=== PATIENT | female | born 1970 | race Caucasian/White ===

== ENCOUNTER 2017-03-22 19:12 | Emergency (ER) | payer OTHER ==
[2017-03-22 19:20] VITALS: BP 110/69; PULSE 77; TEMP 98.2; BMI 29.2
--- NOTE | 2017-03-22 19:52 | PDOC ---
History of Present Illness - General Chief Complaint: Eye Problem Stated Complaint: EYE PAIN Time Seen by Provider: 03/22/17 19:39 History Source: Patient Exam Limitations: No Limitations - History of Present Illness Initial Comments: 03/22/17 19:59 Chief complaint: Redness to the eye An 46-year-old female with a history of lupus states that her eye, left is red today, no visual issues. She had similar to the right eye last week, used antibiotic drops which she has with her and she started to use them in the left eye today but they did not help. She states they helped in the right eye last week. Wear contacts, she does not have discharge from the eye or pain. GENERAL/CONSTITUTIONAL: No fever, weakness. dizziness HEAD, EYES, EARS, NOSE AND THROAT: No change in vision. No ear pain or discharge. No sore throat. + Eye redness CARDIOVASCULAR: No chest pain RESPIRATORY: No shortness of breath or cough GASTROINTESTINAL: No pain, nausea, vomiting, diarrhea or constipation GENITOURINARY: No dysuria MUSCULOSKELETAL: No neck or back pain SKIN: No rash NEUROLOGIC: No headache, vertigo, loss of consciousness, or loss of sensation. GENERAL: The patient is awake, alert, and fully oriented, in no acute distress. HEAD: Normal with no signs of trauma. EYES: Pupils equal, round and reactive to light, sclera anicteric, sclera clear , left slightly reddened, EOMs intact, fundus clear ENT: pharynx: no erythema, no exudate, uvula midline NECK: supple CHEST: clear, nontender, rr ABD: soft, nontender EXTREMITIES: Normal range of motion, no edema. NEUROLOGICAL: Normal speech, normal gait. SKIN: Warm, Dry Past History - Past Medical History Allergies/Adverse Reactions: Allergies Allergy/AdvReac Type Severity Reaction Status Date / Time Penicillins Allergy Verified 03/22/17 19:20 Home Medications: Ambulatory Orders Moxifloxacin HCl [Vigamox 0.5% Eye Drops -] 1 drop OP TID #1 bot 03/22/17 Thyroid Disease: Yes Other medical history: lupus - Suicide/Smoking/Psychosocial Hx Smoking History: Never smoked Have you smoked in the past 12 months: No Information on smoking cessation initiated: No Hx Alcohol Use: No Drug/Substance Use Hx: No Substance Use Type: None *Physical Exam - Vital Signs Last Vital Signs Temp Pulse Resp BP Pulse Ox 98.2 F 77 18 110/69 99 03/22/17 19:14 03/22/17 19:14 03/22/17 19:14 03/22/17 19:14 03/22/17 19:14 Medical Decision Making - Medical Decision Making 03/22/17 20:02 Patient who had conjunctivitis to the right eyelid last week, treated with polymyxin B Nikita's, not working on left eye which started getting red today, long talk with patient regarding the need to see an acting section chief tomorrow to clarify the issue with her eyes, not classic presentation for conjunctivitis, no visual issues, no concerning signs, globes soft equally in history of red eye last week and antibiotic drop not working, will give a fluoroquinolone drop and she will see her acting section chief tomorrow *DC/Admit/Observation/Transfer Diagnosis at time of Disposition: Redness of eye, left - Discharge Dispostion Disposition: HOME Condition at time of disposition: Stable - Prescriptions Prescriptions: Moxifloxacin HCl [Vigamox 0.5% Eye Drops -] 1 drop OP TID #1 bot - Referrals Referrals: Monalisa Corcoran [Primary Care Provider] - - Patient Instructions Additional Instructions: Use the drops to the left eye 3 times a day for 7 days as discussed this may be the same that you had in the right eye last week but even your history it is very important to get a full eye exam tomorrow by your acting section chief - Post Discharge Activity Forms/Work/School Notes: Back to Work
== END 2017-03-22 19:53 | disposition home or self-care (01) ==
LOC: JERFT 19:12
DX: L53.8 Other specified erythematous conditions (principal); L93.0 Discoid lupus erythematosus
CPT/HCPCS: 99281-25

== ENCOUNTER 2018-01-18 12:41 | Observation (INO) | payer OTHER ==
--- NOTE | 2018-01-18 13:10 | PDOC ---
History of Present Illness - General Chief Complaint: Lightheaded Stated Complaint: DIZZINESS Time Seen by Provider: 01/18/18 13:10 History Source: Patient Exam Limitations: No Limitations - History of Present Illness Initial Comments: 01/18/18 18:45 Ms. Khalil is a 47 yo F with a hx of a thyroidectomy (2015), SLE (diagnosed 2 years ago), HLD, and pre diabetes who presents to the emergency department with weakness. She states she has been having weakness since yesterday. Denies the following: fevers, headaches, chest pain, SOB, abdominal pain, N/V, dizziness, diarrhea, and recent sick contacts. In addition, denies recent travel. Endorses lightheadedness. Pmhx SLE, hypothyroidism, hld, and pre-diabetes Shx: thyroidectomy 2016 07/14 cancerous lesion. BX of thyroid showed cancer. Meds: vit D3, synthroid, and metformin Allergies: penicillin Social: denies smoking, drug use. social drinker. 01/18/18 18:50 01/18/18 18:55 Past History - Past Medical History Allergies/Adverse Reactions: Allergies Allergy/AdvReac Type Severity Reaction Status Date / Time Penicillins Allergy Verified 01/18/18 13:09 Home Medications: Ambulatory Orders Levothyroxine [Synthroid -] 150 mcg PO DAILY 01/18/18 Loratadine 10 mg PO DAILY 01/18/18 Metformin HCl [Metformin HCl ER] 500 mg PO DAILY 01/18/18 Thyroid Disease: Yes - Suicide/Smoking/Psychosocial Hx Smoking History: Never smoked Have you smoked in the past 12 months: No Hx Alcohol Use: No Drug/Substance Use Hx: No Substance Use Type: None Review of Systems - Review of Systems Constitutional: No: Chills, Diaphoresis, Fever HEENTM: No: Recent change in vision, Nose Pain, Throat Pain, Mouth Pain Respiratory: No: Cough, Shortness of Breath Cardiac (ROS): Yes: Lightheadedness. No: Chest Pain ABD/GI: No: Constipated, Diarrhea, Nausea, Rectal Bleeding, Vomiting, Tarry Stools : No: Dysuria, Hematuria Musculoskeletal: No: Back Pain Integumentary: No: Rash Neurological: Yes: Weakness. No: Headache, Numbness, Ataxia, Dizziness Psychiatric: No: Change in Appetite Endocrine: No: Unexplained Weight Loss Hematologic/Lymphatic: No: Anemia *Physical Exam - Physical Exam General Appearance: Yes: Nourished, Appropriately Dressed HEENT: positive: EOMI, ANGELINA, Normal Voice. negative: Pharyngeal Erythema, Tonsillar Exudate, Tonsillar Erythema, Rhinorrhea, TM Bulging, TM Erythema Respiratory/Chest: positive: Lungs Clear, Normal Breath Sounds Cardiovascular: positive: Regular Rhythm, Regular Rate, S1, S2. negative: Systolic Murmur Gastrointestinal/Abdominal: positive: Normal Bowel Sounds. negative: Tender Musculoskeletal: negative: CVA Tenderness Extremity: positive: Normal Capillary Refill, Normal Inspection Integumentary: positive: Normal Color, Dry, Warm Neurologic: positive: galley hand II-XII NML intact, Fully Oriented, Alert, Normal Mood/ Affect, Normal Response, Motor Strength 10/14 ED Treatment Course - LABORATORY CBC & Chemistry Diagram: 01/18/18 14:00 01/18/18 14:00 Medical Decision Making - Medical Decision Making 01/18/18 18:55 Initial vitals" Initial Vital Signs Temp Pulse Resp BP Pulse Ox 97.1 F L 67 18 124/84 97 01/18/18 13:09 01/18/18 13:09 01/18/18 13:09 01/18/18 13:09 01/18/18 13:09 Work up: Laboratory Results - last 24 hr 01/18/18 01/18/18 01/18/18 14:00 14:00 14:00 WBC 2.5 L RBC 4.12 Hgb 11.7 Hct 34.7 MCV 84.2 MCH 28.4 MCHC 33.7 RDW 14.4 Plt Count 138 MPV 9.7 Absolute Neuts (auto) 1.3 Neutrophils % 50.3 Lymphocytes % 36.5 Monocytes % 8.7 Eosinophils % 4.0 Basophils % 0.5 Nucleated RBC % 0 Sodium 140 Potassium 4.2 Chloride 104 Carbon Dioxide 30 Anion Gap 6 L BUN 13 Creatinine 0.6 Creat Clearance w eGFR > 60 Random Glucose 85 Calcium 8.6 Total Bilirubin 0.6 AST 35 ALT 36 Alkaline Phosphatase 111 Creatine Kinase 192 Creatine Kinase Index 1.3 CK-MB (CK-2) 2.65 Troponin I < 0.02 Total Protein 9.0 H Albumin 3.5 TSH 45.30 H Urine Color Urine Appearance Urine pH Ur Specific [place] Urine Protein Urine Glucose (UA) Urine Ketones Urine Blood Urine Nitrite Urine Bilirubin Urine Urobilinogen Ur Leukocyte Esterase Urine HCG, Qual HIV 1&2 Antibody Screen HIV P24 Antigen 01/18/18 01/18/18 01/18/18 16:37 16:37 17:19 WBC RBC Hgb Hct MCV MCH MCHC RDW Plt Count MPV Absolute Neuts (auto) Neutrophils % Lymphocytes % Monocytes % Eosinophils % Basophils % Nucleated RBC % Sodium Potassium Chloride Carbon Dioxide Anion Gap BUN Creatinine Creat Clearance w eGFR Random Glucose Calcium Total Bilirubin AST ALT Alkaline Phosphatase Creatine Kinase Creatine Kinase Index CK-MB (CK-2) Troponin I Total Protein Albumin TSH Urine Color Straw Urine Appearance Clear Urine pH 6.0 Ur Specific [place] 1.005 Urine Protein Negative Urine Glucose (UA) Negative Urine Ketones Negative Urine Blood Negative Urine Nitrite Negative Urine Bilirubin Negative Urine Urobilinogen Negative Ur Leukocyte Esterase Negative Urine HCG, Qual Negative HIV 1&2 Antibody Screen Negative HIV P24 Antigen Negative TSH is elevated. Given her hx of cancerous thyroid s/p thyroidectomy, under utilized synthroid use and concerns of abnormal TSH levels. She states recently had her synthroid changed from 125 to 150 01/15/2018. She is bradycardic in the ED with increasing weakness. will stay for observation 01/18/18 18:58 01/19/18 07:05 *DC/Admit/Observation/Transfer Diagnosis at time of Disposition: Hypothyroidism Qualifiers: Hypothyroidism type: unspecified Qualified Code(s): E03.9 - Hypothyroidism, unspecified - Discharge Dispostion Decision to Admit order: Yes - Referrals - Patient Instructions - Post Discharge Activity
[2018-01-18] MEDS ORDERED: SODIUM CHLORIDE 1,000 ML IV STA (13:47)
[2018-01-18 14:14] LABS: BASO % 0.5 % (0-2.0); HEMATOCRIT 34.7 % (32.4-45.2); HEMOGLOBIN 11.7 GM/dL (10.7-15.3); LYMPH % 36.5 % (8-40); MCH 28.4 pg (25.7-33.7); MCHC 33.7 g/dl (32.0-36.0); MEAN CELL VOLUME 84.2 fl (80-96); MEAN PLT VOLUME 9.7 fl (7.5-11.1); MONO % 8.7 % (3.8-10.2); NEUT % 50.3 % (42.8-82.8); PLATELET COUNT 138 K/MM3 (134-434); RBC 4.12 M/mm3 (3.60-5.2); RDW 14.4 % (11.6-15.6); WHITE BLOOD COUNT 2.5 K/mm3 (4.0-10.0)
[2018-01-18 14:38] LABS: ALBUMIN 3.5 g/dl (3.4-5.0); ANION GAP 6 (8-16); BILIRUBIN,TOTAL 0.6 mg/dL (0.2-1.0); BLOOD UREA NITROGEN 13 mg/dL (7-18); CALCIUM 8.6 mg/dL (8.5-10.1); CHLORIDE 104 mmol/L (98-107); CO2 30 mmol/L (21-32); CREATININE 0.6 mg/dL (0.55-1.02); GLUCOSE,RANDOM 85 mg/dL (74-106); POTASSIUM 4.2 mmol/L (3.5-5.1); SGOT/AST 35 U/L (15-37); SGPT/ALT 36 U/L (12-78); SODIUM 140 mmol/L (136-145)
[2018-01-18 14:40] LABS: ALK PHOS 111 U/L (45-117)
--- NOTE | 2018-01-18 15:03 | PDOC ---
Attending Attestation - Resident Resident Name: Praveen Miramontes - ED Attending Attestation I have performed the following: I have examined & evaluated the patient, The case was reviewed & discussed with the resident, I agree w/resident's findings & plan, Exceptions are as noted - HPI HPI: 01/18/18 14:41 47 F with h/o thyroidectomy presenting with generalized weakness and fatigue. Pt states that it started last night but acutely worsened today. Pt denies pain. Denies F/C. Denies CP/SOB. Denies weakness/numbness on one side of her body. Denies slurred speech. No sick contacts. - Physicial Exam PE: 01/18/18 14:44 "GENERAL: Awake, alert, and fully oriented, in no acute distress. HEAD: No signs of trauma EYES: PERRLA, EOMI, sclera anicteric, conjunctiva clear ENT: Auricles normal inspection, hearing grossly normal, nares patent, oropharynx clear without exudates. Moist mucosa NECK: Nontender, no stepoffs, Normal ROM, supple, no lymphadenopathy, JVD, or masses LUNGS: Breath sounds equal, clear to auscultation bilaterally. No wheezes, and no crackles HEART: Regular rate and rhythm, normal S1 and S2, no murmurs, rubs or gallops ABDOMEN: Soft, nontender, normoactive bowel sounds. No guarding, no rebound. No masses EXTREMITIES: Normal range of motion, no edema. No clubbing or cyanosis. No cords, erythema, or tenderness NEUROLOGICAL: Cranial nerves II through XII intact. 5/5 strength and sensation in all extremities, Normal speech, normal gait, normal cerebellar function SKIN: Warm, Dry, normal turgor, no rashes or lesions noted." - Medical Decision Making 01/18/18 14:44 47 F with weakness and lightheadedness. Will evaluate for infectious process. Also consider cardiac etiology, though pt with unremarkable EKG. Will check TSH given h/o hypothyroidism. - Labs - CXR, UA - IVF - Reassess 01/18/18 16:49 Labs notable for WBC 2.5, ANC 1.3 Pt with mild neutropenia but no fevers, no clinical signs of infectious process. Will f/u UA and CXR. If any sign of infection, will admit for IV abx Pt otherwise well appearing. Pt signed out to oncoming attending at 5pm, pending labwork, UA, and CXR
[2018-01-18 16:55] LABS: URINE APPEARANCE CLEAR; URINE BILIRUBIN NEGATIVE (<2.0 mg/dL); URINE COLOR STRAW; URINE GLUCOSE (UA) NEGATIVE (NEGATIVE); URINE KETONE NEGATIVE (NEGATIVE); URINE LEUK ESTERASE NEGATIVE (NEGATIVE); URINE NITRITE NEGATIVE (NEGATIVE); URINE PROTEIN NEGATIVE (NEGATIVE); URINE UROBILINOGEN NEGATIVE mg/dL (0.2-1.0)
--- NOTE | 2018-01-18 17:23 | PDOC ---
*Physical Exam - Vital Signs Last Vital Signs Temp Pulse Resp BP Pulse Ox 97.5 F L 59 L 20 122/88 100 01/18/18 17:11 01/18/18 17:11 01/18/18 17:11 01/18/18 17:11 01/18/18 17:11 - Physical Exam Comments: 01/18/18 18:52 gen: awake, alert, feels tired heart: +s1s2 rachid lungs: cta b/l abd: sof, nt/nd +bs ext: no c/c/e neuro: no focal neuro deficits ED Treatment Course - LABORATORY CBC & Chemistry Diagram: 01/18/18 14:00 01/18/18 14:00 - ADDITIONAL ORDERS Additional order review: Laboratory Results 01/18/18 01/18/18 01/18/18 16:37 16:37 14:00 Sodium 140 Potassium 4.2 Chloride 104 Carbon Dioxide 30 Anion Gap 6 L BUN 13 Creatinine 0.6 Creat Clearance w eGFR > 60 Random Glucose 85 Calcium 8.6 Total Bilirubin 0.6 AST 35 ALT 36 Alkaline Phosphatase 111 Creatine Kinase 192 Creatine Kinase Index 1.3 CK-MB (CK-2) 2.65 Troponin I < 0.02 Total Protein 9.0 H Albumin 3.5 Urine Color Straw Urine Appearance Clear Urine pH 6.0 Ur Specific [place] 1.005 Urine Protein Negative Urine Glucose (UA) Negative Urine Ketones Negative Urine Blood Negative Urine Nitrite Negative Urine Bilirubin Negative Urine Urobilinogen Negative Ur Leukocyte Esterase Negative Urine HCG, Qual Negative 01/18/18 14:00 RBC 4.12 MCV 84.2 MCHC 33.7 RDW 14.4 MPV 9.7 Neutrophils % 50.3 Lymphocytes % 36.5 Monocytes % 8.7 Eosinophils % 4.0 Basophils % 0.5 - Medications Given in the ED: ED Medications Discontinued Medications Generic Name Dose Route Start Last Admin Trade Name Freq PRN Reason Stop Dose Admin Sodium Chloride 1,000 mls @ 1,000 mls/hr 01/18/18 13:47 01/18/18 14:07 Normal Saline - IV 01/18/18 14:46 1,000 mls/hr ASDIR STA Administration Medical Decision Making - Medical Decision Making 01/18/18 18:53 a/p: 47yo female with increasing lethargy and feeling tired -pt signed out from the prior attending pending labs, cxr, ua 01/18/18 18:53 tsh 45- pt states she is taking her levothyroxine states she is tired, lethargic, cold when everyone else is hot, hair loss no leg swelling [facility] is her family member caretaker pt is s/p thyroidectomy for thyroid cancer - doc at [facility] will send free t4 suspect thyroid as cause of lethargy call placed to [facility] Dr. Corcoran is PMD *DC/Admit/Observation/Transfer Diagnosis at time of Disposition: Hypothyroidism - Discharge Dispostion Condition at time of disposition: Fair Decision to Admit order: Yes - Referrals Referrals: Monalisa Corcoran [Primary Care Provider] - - Patient Instructions - Post Discharge Activity - Attestations Physician Attestion: 01/18/18 20:12 I, Dr. Jasmin Ocasio, DO, attest that this document has been prepared under my direction and personally reviewed by me in its entirety. I further attest, that it accurately reflects all work, treatment, procedures and medical decision -making performed by me.
--- NOTE | 2018-01-18 20:55 | HP ---
CHIEF COMPLAINT: weakness and lethargy PCP: HISTORY OF PRESENT ILLNESS: 47 yo female with PMH Thyroid cancer s/p total thyroidectomy, HLD, Pre-diabetes , SLE, presents to the ED with 1 day of worsening weakness and lethargy. She also endorses feeling cold. She states that a few weeks ago she ran out of her synthroid and did not take it until she received a new prescription this past weekend. At that time her dose was increased from 125 mcg PO Daily to 150 mcg PO Daily and she filled the prescription on Monday (3 days ago). She followed up last year for imaging and states she was told she has no residual signs of thyroid cancer, but that she will need to be on synthroid for life. As for her Lupus dx, she was diagnosed 2 years ago and described her only main symptoms as feeling tired and sleeping a lot, denies any skin pathology, though she does endorse some swelling in her fingers when she first wakes up that resolves shortly after starting her day. She denies fevers, nighsweats, headache, chest pain, SOB, nausea, vomiting, diarrhea, leg swelling. Of note, Pt endorses 15 pound weight loss over the last few months as she has been dieting and trying to eat a more healthy diet with her prediabetes. ER course was notable for: (1) WBC 2.5, TSH 45, T4 0.51 (2) 1L NS (3) CXR noted, no acute pathology Recent Travel: none PAST MEDICAL HISTORY: Thyroid Cancer s/p total thyroidectomy HLD Pre-diabetes SLE PAST SURGICAL HISTORY: none Social History: Smoking: none Alcohol: none Drugs: none Family History: Allergies Penicillins Allergy (Verified 01/18/18 13:09) HOME MEDICATIONS: Home Medications Medication Instructions Recorded Loratadine 10 mg PO DAILY 01/18/18 Metformin HCl [Metformin HCl ER] 500 mg PO DAILY 01/18/18 REVIEW OF SYSTEMS CONSTITUTIONAL: chills generalized weakness Absent: fever, , diaphoresis, , malaise, loss of appetite, weight change HEENT: Absent: rhinorrhea, nasal congestion, throat pain, throat swelling, difficulty swallowing, mouth swelling, ear pain, eye pain, visual changes CARDIOVASCULAR: Absent: chest pain, syncope, palpitations, irregular heart rate, lightheadedness , peripheral edema RESPIRATORY: Absent: cough, shortness of breath, dyspnea with exertion, orthopnea, wheezing, stridor, hemoptysis GASTROINTESTINAL: Absent: abdominal pain, abdominal distension, nausea, vomiting, diarrhea, constipation, melena, hematochezia GENITOURINARY: Absent: dysuria, frequency, urgency, hesitancy, hematuria, flank pain, genital pain MUSCULOSKELETAL: Absent: myalgia, arthralgia, joint swelling, back pain, neck pain SKIN: Absent: rash, itching, pallor HEMATOLOGIC/IMMUNOLOGIC: Absent: easy bleeding, easy bruising, lymphadenopathy, frequent infections ENDOCRINE:cold intolerance Absent: unexplained weight gain, unexplained weight loss, heat intolerance, NEUROLOGIC: Absent: headache, focal weakness or paresthesias, dizziness, unsteady gait, seizure, mental status changes, bladder or bowel incontinence PSYCHIATRIC: Absent: anxiety, depression, suicidal or homicidal ideation, hallucinations. PHYSICAL EXAMINATION Vital Signs - 24 hr 01/18/18 01/18/18 01/18/18 13:09 16:57 17:11 Temperature 97.1 F L 97.8 F 97.5 F L Pulse Rate 67 Pulse Rate [ 64 59 L Apical] Respiratory 18 18 20 Rate Blood Pressure 124/84 Blood Pressure 120/81 122/88 [Right Arm] O2 Sat by Pulse 97 98 100 Oximetry (%) 01/18/18 20:21 Temperature 98.1 F Pulse Rate Pulse Rate [ 70 Apical] Respiratory 70 H Rate Blood Pressure Blood Pressure 112/72 [Right Arm] O2 Sat by Pulse 96 Oximetry (%) GENERAL: A&O, no acute distress HEAD: Normocephalic, atraumatic, thinning of hair EYES: PERRL, EOMI, no scleral icterus, possibly cataracts forming b/l EARS, NOSE, THROAT: oropharynx clear without exudates. Moist mucous membranes. NECK: without lymphadenopathy, no thyroid or thyroid nodules felt on exam LUNGS: CTA b/l, no crackles or wheezes HEART: Regular rate and rhythm, normal S1 and S2 without murmur, rub or gallop. ABDOMEN: Soft nontender to palpation, normoactive bowel sounds MUSCULOSKELETAL: No bony deformities or tenderness. No CVA tenderness. UPPER EXTREMITIES: 2+ pulses, warm, well-perfused. No cyanosis. No clubbing. No peripheral edema. LOWER EXTREMITIES: 2+ pulses, warm, well-perfused. No calf tenderness. No peripheral edema. NEUROLOGICAL: Cranial nerves II-XII grossly intact. Normal speech. PSYCHIATRIC: Cooperative. Good eye contact. Appropriate mood and affect. SKIN: Warm, dry, normal turgor, no rashes or lesions noted Laboratory Results - last 24 hr 01/18/18 01/18/18 01/18/18 14:00 14:00 14:00 WBC 2.5 L RBC 4.12 Hgb 11.7 Hct 34.7 MCV 84.2 MCH 28.4 MCHC 33.7 RDW 14.4 Plt Count 138 MPV 9.7 Absolute Neuts (auto) 1.3 Neutrophils % 50.3 Lymphocytes % 36.5 Monocytes % 8.7 Eosinophils % 4.0 Basophils % 0.5 Nucleated RBC % 0 Sodium 140 Potassium 4.2 Chloride 104 Carbon Dioxide 30 Anion Gap 6 L BUN 13 Creatinine 0.6 Creat Clearance w eGFR > 60 Random Glucose 85 Calcium 8.6 Total Bilirubin 0.6 AST 35 ALT 36 Alkaline Phosphatase 111 Creatine Kinase 192 Creatine Kinase Index 1.3 CK-MB (CK-2) 2.65 Troponin I < 0.02 Total Protein 9.0 H Albumin 3.5 TSH 45.30 H Free T4 Urine Color Urine Appearance Urine pH Ur Specific [place] Urine Protein Urine Glucose (UA) Urine Ketones Urine Blood Urine Nitrite Urine Bilirubin Urine Urobilinogen Ur Leukocyte Esterase Urine HCG, Qual HIV 1&2 Antibody Screen HIV P24 Antigen 01/18/18 01/18/18 01/18/18 16:37 16:37 17:19 WBC RBC Hgb Hct MCV MCH MCHC RDW Plt Count MPV Absolute Neuts (auto) Neutrophils % Lymphocytes % Monocytes % Eosinophils % Basophils % Nucleated RBC % Sodium Potassium Chloride Carbon Dioxide Anion Gap BUN Creatinine Creat Clearance w eGFR Random Glucose Calcium Total Bilirubin AST ALT Alkaline Phosphatase Creatine Kinase Creatine Kinase Index CK-MB (CK-2) Troponin I Total Protein Albumin TSH Free T4 Urine Color Straw Urine Appearance Clear Urine pH 6.0 Ur Specific [place] 1.005 Urine Protein Negative Urine Glucose (UA) Negative Urine Ketones Negative Urine Blood Negative Urine Nitrite Negative Urine Bilirubin Negative Urine Urobilinogen Negative Ur Leukocyte Esterase Negative Urine HCG, Qual Negative HIV 1&2 Antibody Screen Negative HIV P24 Antigen Negative 01/18/18 17:19 WBC RBC Hgb Hct MCV MCH MCHC RDW Plt Count MPV Absolute Neuts (auto) Neutrophils % Lymphocytes % Monocytes % Eosinophils % Basophils % Nucleated RBC % Sodium Potassium Chloride Carbon Dioxide Anion Gap BUN Creatinine Creat Clearance w eGFR Random Glucose Calcium Total Bilirubin AST ALT Alkaline Phosphatase Creatine Kinase Creatine Kinase Index CK-MB (CK-2) Troponin I Total Protein Albumin TSH Free T4 0.51 L Urine Color Urine Appearance Urine pH Ur Specific [place] Urine Protein Urine Glucose (UA) Urine Ketones Urine Blood Urine Nitrite Urine Bilirubin Urine Urobilinogen Ur Leukocyte Esterase Urine HCG, Qual HIV 1&2 Antibody Screen HIV P24 Antigen ASSESSMENT/PLAN: 47 yo female with PMH Thyroid cancer s/p total thyroidectomy, HLD, Pre-diabetes , SLE, presents to the ED with 1 day of worsening weakness and lethargy, most likely secondary to not taking synthroid for 3 weeks, restarted 3 days ago. Weakness secondary to Hypothyroidism -Pt states that she ran out of her medication 3 weeks ago and did not have an appointment until 5-6 days ago -At that time bloodwork was drawn and her dose was increased from 125 mcg PO Daily to 150 mcg PO Daily. -She filled the prescription on Monday and restarted synthroid at that time -TSH noted to be 45 with T4 0.51 -Pt most likely in hypothyroid state as synthroid often takes a few weeks to normalize TSH -Pt also takes Loratidine at home, will hold for today -Discussed diagnoses and management with pt, she expressed understanding -Will place in observation for now, if pt ambulating in AM she can most likely return home with close follow up SLE -Pt was diagnosed 2 years ago, denies any recent flareups -States she does not know what she was taking but was on medication, she ran out 3 months ago and has not followed up for new script -Does state that she has swelling in her fingers some mornings that resolves as she starts moving around -Will recommend pt to follow up with primary/rheumatology as outpatient Prediabetes -Does not know her recent A1C -Pt on Metformin 500 mg PO Daily -Pt has been dieting and eating healthy with subsequent weight loss HLD -Says she is slightly elevated cholesterol -Is not on home meds and follows with her primary DVT Prophylaxis -Early ambulation FEN -Fluids: NS @ 100 cc/hr -Electrolytes: no abnormalities, BMP in AM -Nutrition: Diabetic diet Disposition Observation Visit type - Emergency Visit Emergency Visit: Yes ED Registration Date: 01/18/18 Care time: The patient presented to the Emergency Department on the above date and was hospitalized for further evaluation of their emergent condition. - New Patient This patient is new to me today: Yes Date on this admission: 01/19/18 - Critical Care Critical Care patient: No Hospitalist Screening - Colonoscopy Questionnaire Colonoscopy Questionnaire: Colonoscopy Questionnaire - Patient: 50 - 75 years old and never had a screening colonoscopy: No History of colon or rectal polyps, or CA: No History of IBD, Crohn's disease or UC: No History of abdominal radiation therapy as a child: No - Relative: 1 with colon or rectal CA, or polyps at age 60 or younger: No Colon or rectal CA diagnosed at age 45 or younger: No Multiple relatives with colon or rectal CA: No - Outcome: Screening Result: Negative Screen
[2018-01-18] MEDS ORDERED: LEVOTHYROXINE NA 150 MCG TABLET PO ONE (21:00)
[2018-01-18] MEDS: SODIUM CHLORIDE 1,000 ML IV SCH (21:09)
--- NOTE | 2018-01-19 00:55 | PN ---
Teaching Attending Note Name of Resident: Stephen Farris ATTENDING PHYSICIAN STATEMENT I saw and evaluated the patient. Chart, data, imaging reviewed. I reviewed the resident's note and discussed the case with the resident. I agree with the resident's findings and plan as documented. SUBJECTIVE: 47 yo female with PMH thyroid cancer s/p total thyroidectomy with resultant hypothyroidism and SLE (not on any medications), c/o fatigue for the last few days. Admits to not taking her levothyroxine for the last 3 weeks because she never filled her prescription. Patient denied feeling cold, hair loss, or LOC. OBJECTIVE: Last Vital Signs Temp Pulse Resp BP Pulse Ox 98.1 F 70 70 H 112/72 96 01/18/18 20:21 01/18/18 20:21 01/18/18 20:21 01/18/18 20:21 01/18/18 20:21 general- nad, aaox3 heent- at, nc, neck -supple, scar s/p thyroidectomy cv -s1+S2+rrr chest cta abdomen- soft, bs+, nt ext- no pedal edema appreciated skin- no rashes, no joint tenderness Abnormal Lab Results 01/18/18 01/18/18 01/18/18 14:00 14:00 14:00 WBC 2.5 L Anion Gap 6 L Total Protein 9.0 H TSH 45.30 H Free T4 01/18/18 17:19 WBC Anion Gap Total Protein TSH Free T4 0.51 L ekg- nsr cxr- reviewed with report ASSESSMENT AND PLAN: 47yo woman with uncontrolled hypothyroidism secondary to medication noncompliance. NO evidence of myxedema coma. -observation -restart home dose of levothyroxine -stressed importance of medication compliance -fall precautions, bed rest -early PCP f/u #Leukopenia- unknown etiology, may be from SLE or from medications. HIV serology was negative. -med reconciliation in am with pharmacy -send hepatitis panel heparin sc for dvt ppx
[2018-01-19] MEDS: SODIUM CHLORIDE 1,000 ML IV SCH (02:28)
[2018-01-19 03:08] VITALS: BMI 29.1
[2018-01-19] MEDS ORDERED: LEVOTHYROXINE NA 150 MCG TABLET PO SCH (07:00)
[2018-01-19 08:28] LABS: HEMATOCRIT 33.4 % (32.4-45.2); HEMOGLOBIN 11.2 GM/dL (10.7-15.3); MCH 28.3 pg (25.7-33.7); MCHC 33.6 g/dl (32.0-36.0); MEAN CELL VOLUME 84.4 fl (80-96); MEAN PLT VOLUME 9.7 fl (7.5-11.1); PLATELET COUNT 129 K/MM3 (134-434); RBC 3.96 M/mm3 (3.60-5.2); RDW 14.6 % (11.6-15.6); WHITE BLOOD COUNT 2.5 K/mm3 (4.0-10.0)
--- NOTE | 2018-01-19 08:34 | EKG ---
Test Reason : Blood Pressure : / mmHG Vent. Rate : 066 BPM Atrial Rate : 066 BPM P-R Int : 226 ms QRS Dur : 084 ms QT Int : 404 ms P-R-T Axes : 051 067 024 degrees QTc Int : 423 ms SINUS RHYTHM WITH 1ST DEGREE A-V BLOCK LOW VOLTAGE QRS NO PREVIOUS ECGS AVAILABLE Confirmed by SONI MEADOWS MD ([id number]) on 01/19/2018 8:33:43 AM Referred By: Confirmed By:SONI MEADOWS MD
[2018-01-19 08:43] LABS: ANION GAP 6 (8-16); BLOOD UREA NITROGEN 11 mg/dL (7-18); CALCIUM 7.7 mg/dL (8.5-10.1); CHLORIDE 106 mmol/L (98-107); CO2 28 mmol/L (21-32); GLUCOSE,RANDOM 83 mg/dL (74-106); MAGNESIUM 1.7 mg/dL (1.8-2.4); POTASSIUM 3.9 mmol/L (3.5-5.1); SODIUM 140 mmol/L (136-145)
[2018-01-19 08:45] LABS: CREATININE 0.6 mg/dL (0.55-1.02); PHOSPHOROUS 3.6 mg/dL (2.5-4.9)
--- NOTE | 2018-01-19 14:32 | PN ---
Teaching Attending Note Name of Resident: Michela Bailey ATTENDING PHYSICIAN STATEMENT I saw and evaluated the patient. I reviewed the resident's note and discussed the case with the resident. I agree with the resident's findings and plan as documented. SUBJECTIVE: OBJECTIVE: Vital Signs Period Temp Pulse Resp BP Sys/Rivers Pulse Ox Last 24 Hr 97.5 F-975 F 59-70 18-70 112-132/72-88 96-100 Laboratory Results - last 24 hr 01/18/18 01/18/18 01/18/18 14:00 14:00 16:37 WBC RBC Hgb Hct MCV MCH MCHC RDW Plt Count MPV Sodium 140 Potassium 4.2 Chloride 104 Carbon Dioxide 30 Anion Gap 6 L BUN 13 Creatinine 0.6 Creat Clearance w eGFR > 60 Random Glucose 85 Calcium 8.6 Phosphorus Magnesium Total Bilirubin 0.6 AST 35 ALT 36 Alkaline Phosphatase 111 Creatine Kinase 192 Creatine Kinase Index 1.3 CK-MB (CK-2) 2.65 Troponin I < 0.02 Total Protein 9.0 H Albumin 3.5 TSH 45.30 H Free T4 Urine Color Straw Urine Appearance Clear Urine pH 6.0 Ur Specific Dubois 1.005 Urine Protein Negative Urine Glucose (UA) Negative Urine Ketones Negative Urine Blood Negative Urine Nitrite Negative Urine Bilirubin Negative Urine Urobilinogen Negative Ur Leukocyte Esterase Negative Urine HCG, Qual HIV 1&2 Antibody Screen HIV P24 Antigen 01/18/18 01/18/18 01/18/18 16:37 17:19 17:19 WBC RBC Hgb Hct MCV MCH MCHC RDW Plt Count MPV Sodium Potassium Chloride Carbon Dioxide Anion Gap BUN Creatinine Creat Clearance w eGFR Random Glucose Calcium Phosphorus Magnesium Total Bilirubin AST ALT Alkaline Phosphatase Creatine Kinase Creatine Kinase Index CK-MB (CK-2) Troponin I Total Protein Albumin TSH Free T4 0.51 L Urine Color Urine Appearance Urine pH Ur Specific Dubois Urine Protein Urine Glucose (UA) Urine Ketones Urine Blood Urine Nitrite Urine Bilirubin Urine Urobilinogen Ur Leukocyte Esterase Urine HCG, Qual Negative HIV 1&2 Antibody Screen Negative HIV P24 Antigen Negative 01/19/18 01/19/18 07:30 07:30 WBC 2.5 L RBC 3.96 Hgb 11.2 Hct 33.4 MCV 84.4 MCH 28.3 MCHC 33.6 RDW 14.6 Plt Count 129 L MPV 9.7 Sodium 140 Potassium 3.9 Chloride 106 Carbon Dioxide 28 Anion Gap 6 L BUN 11 Creatinine 0.6 Creat Clearance w eGFR > 60 Random Glucose 83 Calcium 7.7 L Phosphorus 3.6 Magnesium 1.7 L Total Bilirubin AST ALT Alkaline Phosphatase Creatine Kinase Creatine Kinase Index CK-MB (CK-2) Troponin I Total Protein Albumin TSH Free T4 Urine Color Urine Appearance Urine pH Ur Specific Dubois Urine Protein Urine Glucose (UA) Urine Ketones Urine Blood Urine Nitrite Urine Bilirubin Urine Urobilinogen Ur Leukocyte Esterase Urine HCG, Qual HIV 1&2 Antibody Screen HIV P24 Antigen Current Medications Generic Name Dose Route Start Last Admin Trade Name Ad PRN Reason Stop Dose Admin Sodium Chloride 1,000 mls @ 100 mls/hr 01/18/18 21:00 01/19/18 02:28 Normal Saline - IV 100 mls/hr ASDIR MARCELINO Administration Levothyroxine Sodium 150 mcg 01/19/18 07:00 01/19/18 06:38 Synthroid - PO 150 mcg DAILY@0700 MARCELINO Administration ASSESSMENT AND PLAN: This is a 47 year old woman with a history of total thyroidectomy secondary to thyroid cancer, hyperlipidemia, prediabetes, SLE who presented to the ED with worsening weakness and lethargy. 1. Hypothyroidism - Patient has been unclear about her medication - She says that she has been on Synthroid 150 mcg daily and ran out several weeks ago. She then got a prescription from a covering MD but that prescription was for 125 mcg which she took for 1 day 2 weeks ago. She then got a new prescription for 150 mcg which she has been taking for about a week. She says she had labs done about 1 week ago and was told they were high. - She says she is feeling better today - Will attempt to contact PCP, foreign correspondent, pharmacy to get more info about meds and labs - She is stable for discharge home 2. Thyroid cancer, history of total thyroidectomy 3. SLE - Patient has not refilled medication since she ran out 3 months ago 4. Prediabetes - Continue metformin 5. Hyperlipidemia - Patient states she is on no medication
[2018-01-19 15:42] VITALS: BP 103/72; PULSE 59; TEMP 97.7
--- NOTE | 2018-01-19 16:11 | DS ---
Physical Exam: SUBJECTIVE: Patient seen and examined at bedside. No new complaints. Patient states she feels better today. Several attempts made to reach patient's PCP today with negative results. OBJECTIVE: Vital Signs Period Temp Pulse Resp BP Sys/Rivers Pulse Ox Last 24 Hr 97.5 F-975 F 59-70 18-70 103-132/72-88 96-100 PHYSICAL EXAM GENERAL: The patient is awake, alert, and fully oriented, in no acute distress. NECK: Trachea midline, full range of motion, supple. LUNGS: Breath sounds equal, clear to auscultation bilaterally, no wheezes, no crackles, no accessory muscle use. HEART: Regular rate and rhythm, S1, S2 without murmur, rub or gallop. ABDOMEN: Soft, nontender, nondistended, normoactive bowel sounds, no guarding, no rebound, no hepatosplenomegaly, no masses. EXTREMITIES: 2+ pulses, warm, well-perfused, no edema. NEUROLOGICAL: Cranial nerves II through X grossly intact. Normal speech, gait not observed. SKIN: Warm, dry, normal turgor, no rashes or lesions noted. LABS HOSPITAL COURSE: Date of Admission:01/18/18 The patient is a 47 yo female with PMH Thyroid cancer s/p total thyroidectomy, HLD, and SLE who presented to the ED c/o 1 day of worsening weakness and lethargy. As per the patient, she had recently changed her synthroid dose and ran out of her new medication. In the ED, the patient was found to have a TSH of 45 and a T4 of 0.51. The patient was admitted for the treatment of hypothyroidism. The patient was treated with synthroid and IVF. She improved clinically and her symptoms improved. The patient was discharged with instructions to follow up with her primary care physician and an warehouseman within one week. Date of Discharge: 01/19/18 Minutes to complete discharge: 40 Discharge Summary Reason For Visit: HYPOTHYROIDISM Current Active Problems Hypothyroidism (Acute) Condition: Improved - Instructions Diet, Activity, Other Instructions: You were admitted to the hospital for complaints of worsening weakness and lethargy found to have low thyroid hormone levels. You were monitored overnight and given thyroid medication. You are being discharged home with recommendation to follow up with your primary care physician. MEDICAL RECOMMENDATIONS Please continue taking your home medications as prescribed. You will need to have your thyroid function tests repeated in order to make sure that your current dose of thyroid medication is appropriate. CONSULT RECOMMENDATIONS Please follow up with your primary care physician within 1 week. Please follow up with your warehouseman within 1 week. If you start to experience persistent dizziness/headaches, are unable to walk steadily due to balance and coordination issues, chest pain, shortness of breath or other worsening symptoms, please proceed to your nearest emergency room immediately. Referrals: Monalisa Corcoran [Primary Care Provider] - 1 Week Disposition: HOME - Home Medications Comprehensive Discharge Medication List: Ambulatory Orders Levothyroxine [Synthroid -] 150 mcg PO ACBK 01/18/18 Loratadine 10 mg PO DAILY 01/18/18 Metformin HCl [Metformin HCl ER] 500 mg PO DAILY 01/18/18 Cholecalciferol (Vitamin D3) [Vitamin D3] 5,000 unit PO 01/19/18 This patient is new to me today: No Emergency Visit: Yes ED Registration Date: 01/18/18 Care time: The patient presented to the Emergency Department on the above date and was hospitalized for further evaluation of their emergent condition. Critical Care patient: No - Discharge Referral Referred to [facility] No
== END 2018-01-19 19:00 | disposition home or self-care (01) ==
LOC: JER 12:41 → JERBED 20:36 → J8W 01-19 02:10
PROVIDERS: ADMIT Internal Medicine; ATTEND Internal Medicine
PROC: 3E0337Z Introduction of Electrolytic and Water Balance Substance into Peripheral Vein, Percutaneous Approach (ICD-10-PCS; principal; 2018-01-18)
DX: E89.0 Postprocedural hypothyroidism (principal); E78.5 Hyperlipidemia, unspecified; M32.9 Systemic lupus erythematosus, unspecified; R73.03 Prediabetes; Z91.14 Patient's other noncompliance with medication regimen; D72.819 Decreased white blood cell count, unspecified; Z85.850 Personal history of malignant neoplasm of thyroid
CPT/HCPCS: 36415; 71045-TC-FY; 80048; 80053; 81003; 82550; 82553; 83735; 84100; 84439; 84443; 84484; 84703; 85025; 85027; 87086; 87389; 93005; 93010; 96360; 99284-25; G0378; J7030

== ENCOUNTER 2019-06-22 08:38 | Emergency (ER) | payer OTHER ==
[2019-06-22 08:46] VITALS: BP 104/65; PULSE 85; TEMP 98.3; BMI 22.6
--- NOTE | 2019-06-22 09:05 | PDOC ---
History of Present Illness - General Chief Complaint: Cold Symptoms Stated Complaint: COLD SYS Time Seen by Provider: 06/22/19 08:48 - History of Present Illness Initial Comments: 06/22/19 09:05 CHIEF COMPLAINT: cough HISTORY OF PRESENT ILLNESS: 48 yo F with hx of lupus presents to [facility] with cough x 4 days. Patient reports seeing her PCP on Mon and was prescribed Mucinex and clarithromycin which she started on (two days ago) but states she has not felt much better. No recent travel or sick contacts. PAST MEDICAL HISTORY: lupus FAMILY HISTORY: Denies SOCIAL HISTORY: Denies tobacco, alcohol, illicit drug use. SURGICAL HISTORY: Denies ALLERGIES: PCN REVIEW OF SYSTEMS General/Constitutional: Chills, nightsweats, subjective fever. Denies weakness, weight change. HEENT: Denies change in vision. Denies ear pain or discharge. Denies sore throat. Cardiovascular: Denies chest pain or shortness of breath. Respiratory: Cough x 4 days. Gastrointestinal: Denies nausea, vomiting, diarrhea or constipation. Denies rectal bleeding. Genitourinary: Denies dysuria, frequency, or change in urination. Musculoskeletal: Denies joint or muscle swelling or pain. Denies neck or back pain. Skin and breasts: Denies rash or easy bruising. Neurologic: Denies headache, vertigo, loss of consciousness, or loss of sensation. Psychiatric: Denies depression or anxiety. PHYSICAL EXAM General Appearance: Well-appearing, appropriately dressed. No apparent distress , no intoxication. HEENT: EOMI, PERRLA, normal ENT inspection, normal voice, TMs normal, pharynx normal. No conjunctival pallor. No photophobia, scleral icterus. Neck: Supple. Trachea midline. No tenderness, rigidity, carotid bruit, stridor , lymphadenopathy, or thyromegaly. Respiratory/Chest: Inspiratory wheeze to RUL and JUDE. No shortness of breath, chest tenderness, respiratory distress, accessory muscle use. No crackles, rales , rhonchi, stridor, wheezing, dullness Cardiovascular: RRR. S1, S2. No JVD, murmur, bradycardia, tachycardia. Vascular Pulses: Dorsalis-Pedis (R): 2+, Dorsalis-Pedis (L): 2+ Gastrointestinal/Abdominal: Normal bowel sounds. Abdomen soft, non-distended. No tenderness or rebound tenderness. No organomegaly, pulsatile mass, guarding , hernia, hepatomegaly, splenomegaly. Lymphatic: No adenopathy, tenderness. Musculoskeletal/Extremities: Normal inspection. FROM of all extremities, normal capillary refill. Pelvis Stable. No CVA tenderness. No tenderness to extremities, pedal edema, swelling, erythema or deformity. Integumentary: Appropriate color, dry, warm. 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 Fully oriented, alert. Appropriate mood/affect. Motor strength 5/5. No appreciable EOM palsy, facial droop or sensory deficit. Past History - Past Medical History Allergies/Adverse Reactions: Allergies Allergy/AdvReac Type Severity Reaction Status Date / Time Penicillins Allergy Verified 02/18/18 06:47 Home Medications: Ambulatory Orders Levothyroxine [Synthroid -] 150 mcg PO ACBK 01/18/18 Loratadine 10 mg PO DAILY 01/18/18 Cholecalciferol (Vitamin D3) [Vitamin D3] 5,000 unit PO DAILY 01/19/18 Albuterol Sulfate Inhaler - [Ventolin HFA Inhaler -] 1 - 2 inh PO Q6H PRN #1 inhaler 06/22/19 Hydroxychloroquine Sulfate 200 mg PO BID 06/22/19 Levofloxacin [Levaquin] 750 mg PO DAILY #7 tablet 06/22/19 predniSONE [Deltasone -] 40 mg PO DAILY #8 tablet 06/22/19 Cancer: (THYROID CA, S/P TOTAL THYROIDECTOMY) COPD: No Diabetes: Yes (Pre-Diabetes) Thyroid Disease: Yes Other medical history: PNA - Immunization History Immunization Up to Date: No - Psycho Social/Smoking Cessation Hx Smoking History: Never smoked Have you smoked in the past 12 months: No Information on smoking cessation initiated: No Hx Alcohol Use: No Drug/Substance Use Hx: No Substance Use Type: None *Physical Exam - Vital Signs Last Vital Signs Temp Pulse Resp BP Pulse Ox 98.3 F 85 18 104/65 99 06/22/19 08:42 06/22/19 08:42 06/22/19 08:42 06/22/19 08:42 06/22/19 08:42 Medical Decision Making - Medical Decision Making 06/22/19 09:08 48 yo F with hx of lupus presents to [facility] with cough x 4 days. -CXR -duoneb -prednisone 06/22/19 09:36 CXR with possible new infiltrate to R middle lobe. Advised patient to continue taking medication as prescribed by her PCP and to follow up with PCP within the next week. Advised patient of signs and symptoms for return to ED. Patient verbalized understanding and agrees to plan. Discharge - Discharge Information Problems reviewed: Yes Clinical Impression/Diagnosis: Pneumonia Qualifiers: Pneumonia type: due to unspecified organism Laterality: right Lung location: middle lobe of lung Qualified Code(s): J18.9 - Pneumonia, unspecified organism Condition: Stable Disposition: HOME - Admission No - Additional Discharge Information Prescriptions: Albuterol Sulfate Inhaler - [Ventolin HFA Inhaler -] 1 - 2 inh PO Q6H PRN #1 inhaler PRN Reason: cough/wheezing Levofloxacin [Levaquin] 750 mg PO DAILY #7 tablet predniSONE [Deltasone -] 40 mg PO DAILY #8 tablet - Follow up/Referral Referrals: Gurvinder Rutledge FNP [Primary Care Provider] - - Patient Discharge Instructions Patient Printed Discharge Instructions: DI for Pneumonia -- Adult Additional Instructions: Please take medications as prescribed. Follow-up with your primary care doctor in 3 to 5 days for continued monitoring of your symptoms. If you develop persistent fever, vomiting, diarrhea, or any new or worsening symptoms, please return to the ER. - Post Discharge Activity Work/Back to School Note: Back to Work
[2019-06-22] MEDS ORDERED: ALBUTEROL SO4 2.5/IPRATROPIUM 0.5 INH SOL 3 ML VIAL.NEB. NEB ONE ×2 (09:06→09:09)
[2019-06-22] MEDS ORDERED: predniSONE 20 MG TABLET (UD) PO ONE (09:06)
[2019-06-22] MEDS ORDERED: predniSONE 20 MG TABLET (UD) ONE (09:09)
== END 2019-06-22 09:55 | disposition home or self-care (01) ==
LOC: SUPCPDRO 08:38 → JERFT 08:38
PROC: 3E0F7GC Introduction of Other Therapeutic Substance into Respiratory Tract, Via Natural or Artificial Opening (ICD-10-PCS; principal; 2019-06-22)
DX: J18.9 Pneumonia, unspecified organism (principal); Z85.850 Personal history of malignant neoplasm of thyroid; E89.0 Postprocedural hypothyroidism; R73.03 Prediabetes; Z88.0 Allergy status to penicillin
CPT/HCPCS: 71046-TC-FY; 94640; 99281-25

== ENCOUNTER 2019-08-02 17:01 | Emergency (ER) | payer OTHER ==
[2019-08-02 17:16] VITALS: BP 118/67; PULSE 109; BMI 27.1
[2019-08-02] MEDS ORDERED: IBUPROFEN 600 MG TABLET (FP) PO ONE ×2 (17:25→17:27)
--- NOTE | 2019-08-02 17:29 | PDOC ---
History of Present Illness - General Chief Complaint: Cold Symptoms Stated Complaint: Cold Symptoms Time Seen by Provider: 08/02/19 17:19 History Source: Patient Exam Limitations: No Limitations - History of Present Illness Initial Comments: 08/02/19 17:26 Patient is a 48-year-old female who presents to the ED with complaint of body aches, chills, fever and general unwell feeling for the last 4 days. She states her symptoms started 4 days ago and have been progressive. She has been taking Tylenol for her fever but the fever returns. She denies any nausea or vomiting. She denies any diarrhea. The patient has a history of lupus, thyroid disease and diabetes. She has not seen her primary doctor for the symptoms. Past History - Past Medical History Allergies/Adverse Reactions: Allergies Allergy/AdvReac Type Severity Reaction Status Date / Time Penicillins Allergy Verified 08/02/19 17:15 Home Medications: Ambulatory Orders Levothyroxine [Synthroid -] 150 mcg PO ACBK 01/18/18 Loratadine 10 mg PO DAILY 01/18/18 Cholecalciferol (Vitamin D3) [Vitamin D3] 5,000 unit PO DAILY 01/19/18 Albuterol Sulfate Inhaler - [Ventolin HFA Inhaler -] 1 - 2 inh PO Q6H PRN #1 inhaler 06/22/19 Hydroxychloroquine Sulfate 200 mg PO BID 06/22/19 Levofloxacin [Levaquin] 750 mg PO DAILY #7 tablet 06/22/19 predniSONE [Deltasone -] 40 mg PO DAILY #8 tablet 06/22/19 Cancer: (THYROID CA, S/P TOTAL THYROIDECTOMY) COPD: No Diabetes: Yes Thyroid Disease: Yes - Immunization History Immunization Up to Date: No - Psycho Social/Smoking Cessation Hx Smoking History: Never smoked Have you smoked in the past 12 months: No Information on smoking cessation initiated: No Hx Alcohol Use: No Drug/Substance Use Hx: No Substance Use Type: None Review of Systems - Review of Systems Comments:: 08/02/19 17:27 - Review of Systems Able to Perform ROS?: Yes Constitutional: Positive: Fever, Chills, Loss of Appetite HEENTM: No: Eye Pain, Vision changes, Ear Pain, Throat Pain, Throat Swelling, Mouth Pain, Difficulty Swallowing Respiratory: No: Cough, Shortness of Breath, Wheezing, Sputum Production Cardiac (ROS): No: Chest Pain, Chest Tightness, Palpitations, Irregular Heart Beat, Edema ABD/GI: No: Nausea, Vomiting, Abdominal Pain, Diarrhea : No Dysuria, No Hematuria, No Frequency, No Urgency Musculoskeletal: No: Muscle Pain, Back Pain, Joint Pain, Muscle Weakness, Neck Pain; positive: Body aches Integumentary: No: Lesions, Rash Neurological: No: Headache, Numbness, Tingling, Weakness, Speech Difficulties *Physical Exam - Vital Signs Last Vital Signs Temp Pulse Resp BP Pulse Ox 102.5 F H 109 H 21 H 118/67 100 08/02/19 17:12 08/02/19 17:12 08/02/19 17:12 08/02/19 17:12 08/02/19 17:12 - Physical Exam 08/02/19 17:27 - Physical Exam General Appearance: Nourished, Appropriately Dressed, No Distress, generally unwell appearing but nontoxic HEENT: EOMI, Normal Voice, No Pharyngeal Erythema, No Muffled/Hoarse voice, No Tonsillar Exudate, No Tonsillar Erythema, No Nasal Congestion, No Rhinorrhea, Hearing Grossly Normal, TMs Normal, No TM Bulging, No TM Dullness, No TM Erythema Neck: Supple, No Lymphadenopathy (R), No Lymphadenopathy (L), No Rigidity, No Decreased range of motion Respiratory/Chest: Lungs Clear, Normal Breath Sounds. No Respiratory Distress, No Accessory Muscle Use Cardiovascular: Regular Rhythm, Regular Rate, S1, S2 Gastrointestinal/Abdominal: Normal Bowel Sounds, Soft. Non-tender, No Guarding , No Rebound, No Rigidity Musculoskeletal: Normal Inspection. No Decreased Range of Motion Extremity: Normal Capillary Refill, Normal Inspection Integumentary: Normal Color, Dry. No Rash Neurologic: formwork carpenter II-XII NML intact, Fully Oriented, Alert, Normal Mood/Affect, Normal Response Medical Decision Making - Medical Decision Making 08/02/19 17:28 Assessment: Patient is a 48-year-old female with flulike symptoms for 4 days. Plan: Since the patient has had her symptoms for 4 days she is outside the window of Tamiflu. The patient has been made aware that her treatment is for symptomatic treatment only and that is increasing fluids, Tylenol or ibuprofen for fevers and plenty of rest. She should follow-up with her primary doctor in 1 to 2 days for repeat evaluation. She should return to the emergency department for high fevers, shaking chills, profuse vomiting or any other worsening symptoms. She understands and agrees with this treatment plan and she is stable for discharge. 08/02/19 18:03 The patient's temperature is downtrending and she can now be discharged home. Her last oral temperature was 101.7F. Discharge - Discharge Information Problems reviewed: Yes Clinical Impression/Diagnosis: Flu-like symptoms - Follow up/Referral Referrals: Gurvinder Rutledge FNP [Primary Care Provider] - - Patient Discharge Instructions Patient Printed Discharge Instructions: How to Avoid a Cold or Flu Additional Instructions: Get plenty of rest and drink plenty of fluids. Take Tylenol or ibuprofen for your fevers or body aches. Follow-up with your primary doctor within 1 to 2 days for repeat evaluation. Return to the emergency department for high fevers , shaking chills, profuse vomiting or any other worsening symptoms. - Post Discharge Activity
[2019-08-02 18:03] VITALS: TEMP 101.7
== END 2019-08-02 18:07 | disposition home or self-care (01) ==
LOC: JERFT 17:01
DX: J11.1 Influenza due to unidentified influenza virus with other respiratory manifestations (principal); E11.9 Type 2 diabetes mellitus without complications; Z85.850 Personal history of malignant neoplasm of thyroid; E89.0 Postprocedural hypothyroidism; Z87.39 Personal history of other diseases of the musculoskeletal system and connective tissue
CPT/HCPCS: 99282-25

== ENCOUNTER 2019-12-09 20:20 | Emergency (ER) | payer OTHER ==
[2019-12-09] MEDS ORDERED: IBUPROFEN 600 MG TABLET (FP) PO ONE ×2 (20:39→20:46)
--- NOTE | 2019-12-09 20:41 | PDOC ---
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 patient reports lifting a mattress before the pain started. no pain meds at home. no numbness or tingling to lower extremity, no incontinence of bowel and urine. Pe: patient alert ox3. lumbar sacral area tenderness + paraspinal area muscle spasm A: lower back pain P: ibuprofen \ 12/09/19 20:40 Discharge Disposition - Diagnosis Lower back pain Qualifiers: Chronicity: acute Back pain laterality: bilateral Sciatica presence: without sciatica Qualified Code(s): M54.5 - Low back pain - Referrals - Patient Instructions - Post Discharge Activity
[2019-12-09 20:43] VITALS: BP 129/86; PULSE 70; TEMP 98.3; BMI 27.3
[2019-12-09] MEDS ORDERED: KETOROLAC TROMETHAMINE 30 MG/1 ML VIAL IM ONE (20:50)
[2019-12-09] MEDS ORDERED: KETOROLAC TROMETHAMINE 30 MG/1 ML VIAL ONE (20:54)
[2019-12-09] MEDS ORDERED: CYCLOBENZAPRINE HCL 10 MG TABLET (FP) PO ONE (21:11)
[2019-12-09] MEDS ORDERED: CYCLOBENZAPRINE HCL 10 MG TABLET (FP) ONE (21:11)
--- NOTE | 2019-12-09 21:14 | PDOC ---
History of Present Illness - General Chief Complaint: Back Pain Stated Complaint: SACRAL PAIN Time Seen by Provider: 12/09/19 20:36 History Source: Patient Exam Limitations: No Limitations - History of Present Illness Initial Comments: 12/09/19 21:11 CHIEF COMPLAINT: Lower back pain HISTORY OF PRESENT ILLNESS: 49-year-old woman presents emergency department for evaluation of lower back pain. Patient reports the pain came at the end of her work today and is nonradiating in nature. She describes a sharp sensation in her lower back which occurred after lifting a heavy mattress. 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 Patient denies any neurosensory deficits, incontinence of bladder or bowel, urinary retention, saddle anesthesia, foot drop, history of IV drug use or history of cancer. REVIEW OF SYSTEMS: GENERAL: Afebrile, denies any weakness RESPIRATORY: No cough, wheezing, or hemoptysis. CARDIAC: No chest pain or shortness of breath MUSCULOSKELETAL: Pain to generalized lower back. No point tenderness. SKIN : No erythema, no bruising, no deformity. GI/: Denies any abdominal pain, no urinary difficulty, incontinence or urinary retention. RECTAL: Denies any difficulty this A.m. NEUROLOGICAL: Denies any numbness or tingling. No neurosensory deficits. PHYSICAL EXAM: GENERAL: The patient is awake, alert, and fully oriented, in no acute distress. RESPIRATORY: Lungs clear bilaterally, no rhonchi wheezes or crackles CARDIAC: S1-S2 audible, no murmur rub or gallop MUSCULOSKELETAL: Pain to generalized lower back, nonradiating, no tingling or sensory deficit. Less than 2 second cap refill, +2 pedal pulses. GI/: Abdomen soft, nontender, nondistended. No rebound tenderness. No masses palpable. MUSCULOSKELETAL: No spinal point tenderness. Normal reflexive and no deficits to sensation or strength. RECTAL: Deferred patient with no neurological findings SKIN: Warm, Dry, normal turgor, no erythema, no edema no bruising. Past History - Medical History Allergies/Adverse Reactions: Allergies Allergy/AdvReac Type Severity Reaction Status Date / Time Penicillins Allergy Verified 08/02/19 17:15 Home Medications: Ambulatory Orders Levothyroxine [Synthroid -] 150 mcg PO ACBK 01/18/18 Loratadine 10 mg PO DAILY 01/18/18 Cholecalciferol (Vitamin D3) [Vitamin D3] 5,000 unit PO DAILY 01/19/18 Albuterol Sulfate Inhaler - [Ventolin HFA Inhaler -] 1 - 2 inh PO Q6H PRN #1 inhaler 06/22/19 Hydroxychloroquine Sulfate 200 mg PO BID 06/22/19 Levofloxacin [Levaquin] 750 mg PO DAILY #7 tablet 06/22/19 predniSONE [Deltasone -] 40 mg PO DAILY #8 tablet 06/22/19 Methocarbamol [Robaxin -] 1,000 mg PO TID PRN #42 tablet 12/09/19 Cancer: (THYROID CA, S/P TOTAL THYROIDECTOMY) COPD: No Diabetes: Yes Thyroid Disease: Yes - Immunization History Immunization Up to Date: No - Psycho-Social/Smoking History Smoking History: Never smoked Have you smoked in the past 12 months: No - Substance Abuse Hx (Audit-C & DAST Scrn) How often the patient has a drink containing alcohol: Never Score: In Men: 4 or > Positive; In Women: 3 or > Positive: 0 Screen Result (Pos requires Nsg. Audit-10AR): Negative *Physical Exam - Vital Signs Last Vital Signs Temp Pulse Resp BP Pulse Ox 98.3 F 70 20 129/86 100 12/09/19 20:36 12/09/19 20:36 12/09/19 20:36 12/09/19 20:36 12/09/19 20:36 ED Treatment Course - Medications Given in the ED: ED Medications Discontinued Medications Generic Name Dose Route Start Last Admin Trade Name Freq PRN Reason Stop Dose Admin Ibuprofen 600 mg 12/09/19 20:39 12/09/19 20:53 Motrin - PO 12/09/19 20:40 Not Given ONCE ONE Ketorolac Tromethamine 30 mg 12/09/19 20:50 12/09/19 20:59 Toradol Injection - IM 12/09/19 20:51 30 mg ONCE ONE Administration Medical Decision Making - Medical Decision Making 12/09/19 21:12 A/P: 49-year-old woman with lower back pain status post heavy lifting today Physical exam is unremarkable Toradol 30 mg IM now Flexeril 10 mg orally now Discharge home with prescription for Robaxin Portions of this note have been documented using voice recognition software. As a result, errors may occur in the technical marketing consultant process. Effort has been made to correct all grammatical and technical marketing consultant error, but some may have been missed which may produce sporadic inaccurate technical marketing consultant or nonsensical phrases. Discharge - Discharge Information Problems reviewed: Yes Clinical Impression/Diagnosis: Lower back pain Qualifiers: Chronicity: acute Back pain laterality: bilateral Sciatica presence: without sciatica Qualified Code(s): M54.5 - Low back pain Condition: Stable Disposition: HOME - Admission No - Additional Discharge Information Prescriptions: Methocarbamol [Robaxin -] 1,000 mg PO TID PRN #42 tablet PRN Reason: Back Pain - Follow up/Referral - Patient Discharge Instructions Additional Instructions: Take Tylenol or Motrin as needed for pain. Follow manufacturers instructions for appropriate dosage. Try not to walk or bear weight as much as possible for the next 3 days. Warm moist heat applied to your back may help alleviate pain. Take Robaxin 1000 mg 3 times a day as needed for back pain. Return to emergency department for discoloration of the foot, numbness or ti ngling to the foot, worsening pain, or any other concerns. Thank you very much for choosing us to provide your emergent healthcare needs. - Post Discharge Activity Work/Back to School Note: Back to Work
== END 2019-12-09 21:20 | disposition home or self-care (01) ==
LOC: JER 20:20 → JERFT 20:20
PROC: 3E023GC Introduction of Other Therapeutic Substance into Muscle, Percutaneous Approach (ICD-10-PCS; principal; 2019-12-09)
DX: M54.5 Low back pain (principal)
CPT/HCPCS: 96372; 99284-25

== ENCOUNTER 2020-02-11 19:45 | Emergency (ER) | payer OTHER ==
--- NOTE | 2020-02-11 19:53 | PDOC ---
Rapid Medical Evaluation Time Seen by Provider: 02/11/20 19:50 Medical Evaluation: Allergies Allergy/AdvReac Type Severity Reaction Status Date / Time Penicillins Allergy Verified 08/02/19 17:15 02/11/20 19:52 CC: abd pain with diarrhea no vomiting 99.4 temp yesterday, no travel , no illness, no recent sick contact Exam: vss, epigastric tenderness Plan: labs, urine Discharge Disposition - Diagnosis Abdominal pain - Referrals - Patient Instructions - Post Discharge Activity
[2020-02-11 20:00] VITALS: BMI 26.4
--- NOTE | 2020-02-11 20:12 | PDOC ---
History of Present Illness - General Chief Complaint: Pain Stated Complaint: ABD PAIN Time Seen by Provider: 02/11/20 19:50 Past History - Medical History Allergies/Adverse Reactions: Allergies Allergy/AdvReac Type Severity Reaction Status Date / Time Penicillins Allergy Verified 08/02/19 17:15 Home Medications: Ambulatory Orders Levothyroxine [Synthroid -] 150 mcg PO ACBK 01/18/18 Loratadine 10 mg PO DAILY 01/18/18 Cholecalciferol (Vitamin D3) [Vitamin D3] 5,000 unit PO DAILY 01/19/18 Albuterol Sulfate Inhaler - [Ventolin HFA Inhaler -] 1 - 2 inh PO Q6H PRN #1 inhaler 06/22/19 Hydroxychloroquine Sulfate 200 mg PO BID 06/22/19 Levofloxacin [Levaquin] 750 mg PO DAILY #7 tablet 06/22/19 predniSONE [Deltasone -] 40 mg PO DAILY #8 tablet 06/22/19 Methocarbamol [Robaxin -] 1,000 mg PO TID PRN #42 tablet 12/09/19 Cancer: (THYROID CA, S/P TOTAL THYROIDECTOMY) COPD: No Diabetes: Yes Thyroid Disease: Yes - Reproductive History Is Patient Now?: No - Immunization History Immunization Up to Date: No - Psycho-Social/Smoking History Smoking History: Never smoked Have you smoked in the past 12 months: No - Substance Abuse Hx (Audit-C & DAST Scrn) How often the patient has a drink containing alcohol: Never Score: In Men: 4 or > Positive; In Women: 3 or > Positive: 0 Screen Result (Pos requires Nsg. Audit-10AR): Negative In the last yr the pt used illegal drug/Rx for NonMed reason: No Score: Yes response is considered Positive: 0 Screen Result (Positive result requires Nsg. DAST-10): Negative *Physical Exam - Vital Signs Last Vital Signs Temp Pulse Resp BP Pulse Ox 98.2 F 80 20 111/67 98 02/11/20 19:49 02/11/20 19:49 02/11/20 19:49 02/11/20 19:49 02/11/20 19:49 Discharge - Discharge Information Clinical Impression/Diagnosis: Abdominal pain - Follow up/Referral Referrals: Lottie David NP [Primary Care Provider] - - Patient Discharge Instructions - Post Discharge Activity
--- NOTE | 2020-02-11 20:34 | PDOC ---
History of Present Illness - General Chief Complaint: Pain Stated Complaint: ABD PAIN Time Seen by Provider: 02/11/20 19:50 History Source: Patient, Co-worker Exam Limitations: No Limitations - History of Present Illness Initial Comments: 02/11/20 20:33 Missy Khalil is a 49F with PMH SLE on Plaquenil and prednisone presenting with diarrhea and abdominal pain. Reports that for the last few days has had abdominal pain and NBNB loose stools every time she eats. Started after she ate some fruits three days prior, then acute onset when she had lunch, since then has been unable to keep down any PO intake as she will have diarrhea soon after. Pain is mostly localized to the low er quadrants. Denies N/V, spoiled food exposure, or sick contacts at home, lives with daughters who are unaffected. No prior abdominal surgery. No recent travel. Denies fevers and chills. No chest pain, SOB, weakness, dizziness, vision changes, leg swelling. Never had a pain/diarrhea like this before. Allergy to PCN is hives. Denies alcohol/drugs/tobacco. Past History - Medical History Allergies/Adverse Reactions: Allergies Allergy/AdvReac Type Severity Reaction Status Date / Time Penicillins Allergy Verified 08/02/19 17:15 Home Medications: Ambulatory Orders Levothyroxine [Synthroid -] 150 mcg PO ACBK 01/18/18 Loratadine 10 mg PO DAILY 01/18/18 Cholecalciferol (Vitamin D3) [Vitamin D3] 5,000 unit PO DAILY 01/19/18 Albuterol Sulfate Inhaler - [Ventolin HFA Inhaler -] 1 - 2 inh PO Q6H PRN #1 inhaler 06/22/19 Hydroxychloroquine Sulfate 200 mg PO BID 06/22/19 levoFLOXacin [Levaquin] 750 mg PO DAILY #7 tablet 06/22/19 predniSONE [Deltasone -] 40 mg PO DAILY #8 tablet 06/22/19 Methocarbamol [Robaxin -] 1,000 mg PO TID PRN #42 tablet 12/09/19 Ciprofloxacin [Cipro -] 500 mg PO Q12H 4 Days #14 tablet 02/12/20 metroNIDAZOLE [Flagyl -] 500 mg PO TID 7 Days #21 tablet 02/12/20 Cancer: (THYROID CA, S/P TOTAL THYROIDECTOMY) COPD: No Diabetes: Yes Thyroid Disease: Yes - Reproductive History Is Patient Now?: No - Immunization History Immunization Up to Date: No - Psycho-Social/Smoking History Smoking History: Never smoked Have you smoked in the past 12 months: No - Substance Abuse Hx (Audit-C & DAST Scrn) How often the patient has a drink containing alcohol: Never Score: In Men: 4 or > Positive; In Women: 3 or > Positive: 0 Screen Result (Pos requires Nsg. Audit-10AR): Negative In the last yr the pt used illegal drug/Rx for NonMed reason: No Score: Yes response is considered Positive: 0 Screen Result (Positive result requires Nsg. DAST-10): Negative Review of Systems - Review of Systems Able to Perform ROS?: Yes Constitutional: No: Chills, Diaphoresis, Fever HEENTM: No: Symptoms Reported Respiratory: No: Cough, Shortness of Breath, SOB with Exertion, SOB at Rest Cardiac (ROS): No: Chest Pain, Irregular Heart Rate, Lightheadedness, Palpitations, Syncope, Chest Tightness ABD/GI: Yes: Diarrhea, Poor Appetite, Poor Fluid Intake, Abdominal cramping. No: Constipated, Difficulty Swallowing, Nausea, Vomiting : No: Dysuria, Frequency Musculoskeletal: No: Symptoms Reported Integumentary: No: Symptoms Reported Neurological: No: Symptoms reported Endocrine: No: Symptoms Reported Hematologic/Lymphatic: No: Symptoms Reported All Other Systems: Reviewed and Negative *Physical Exam - Vital Signs Last Vital Signs Temp Pulse Resp BP Pulse Ox 98.2 F 80 20 111/67 98 02/11/20 19:49 02/11/20 19:49 02/11/20 19:49 02/11/20 19:49 02/11/20 19:49 - Physical Exam General Appearance: Yes: Nourished, Appropriately Dressed, Other (sitting in chair in NAD). No: Apparent Distress HEENT: positive: EOMI, ANGELINA, Normal Voice, Symmetrical, Pharynx Normal, Hearing Grossly Normal. negative: Scleral Icterus (R), Scleral Icterus (L), Pharyngeal Erythema, Tonsillar Exudate, Tonsillar Erythema Neck: positive: Trachea midline, Normal Thyroid, Supple. negative: Tender, Rigid, Decreased range of motion, Lymphadenopathy (R), Lymphadenopathy (L), Tender lateral, Tender midline Respiratory/Chest: positive: Lungs Clear, Normal Breath Sounds. negative: Chest Tender, Respiratory Distress, Accessory Muscle Use, Crackles, Rales, Rhonchi, Stridor, Wheezing Cardiovascular: positive: Regular Rhythm, Regular Rate. negative: Murmur Gastrointestinal/Abdominal: positive: Normal Bowel Sounds, Tender (lower > upper), Flat, Soft. negative: Pulsatile Mass, Protuberent, Distended, Guarding, Rebound Musculoskeletal: positive: Normal Inspection. negative: CVA Tenderness Extremity: positive: Normal Capillary Refill, Normal Inspection, Normal Range of Motion, Pelvis Stable, Other (gait normal). negative: Tender, Pedal Edema, Swelling, Calf Tenderness Integumentary: positive: Normal Color, Dry, Warm Neurologic: positive: Fully Oriented, Alert, Normal Mood/Affect, Normal Response, Motor Strength 10/14 ED Treatment Course - LABORATORY CBC & Chemistry Diagram: 02/11/20 20:44 02/11/20 20:44 Medical Decision Making - Medical Decision Making 02/12/20 00:01 Patient has no prior abdominal surgery and no known sick contacts or poor food exposure. Lower quadrant tenderness and diarrhea with PO intake is suggestive of infectious GI infection such as diverticulitis, colitis, GB pathology, pancreatitis. Non-toxic appearing with stable VS. CBC/CMP/lipase/coags/UA/UC/ECG with CTAP with IV contrast for complete evaluation of abdominal pain. 02/12/20 02:00 ECG shows NSR with 1st degree AV block, HR 71, QTc 421, nonspecific ST abnormality. Labs notable for: - CBC WNL, no evidence of systemic infection - Ca 8.4, otherwise CMP WNL - lipase WNL - UA clean CT shows pancolitis. Patient has no WBC, afebrile, VSS, in NAD. Eligible for discharge home with PMD/GI f/u. PCN allergy, giving ciprofloxacin and flagyl in ED with outpatient Rx sent. Will need outpatient follow-up, GI referral given. Patient verbalizes understanding of importance of antibiotics and follow-up. Strict return precautions for fever or worse pain given. Discharge - Discharge Information Problems reviewed: Yes Clinical Impression/Diagnosis: Pancolitis Abdominal pain Qualifiers: Abdominal location: generalized Qualified Code(s): R10.84 - Generalized abdominal pain Condition: Stable Disposition: HOME - Admission No - Additional Discharge Information Prescriptions: Ciprofloxacin [Cipro -] 500 mg PO Q12H 4 Days #14 tablet metroNIDAZOLE [Flagyl -] 500 mg PO TID 7 Days #21 tablet - Follow up/Referral Referrals: Lottie David NP [Primary Care Provider] - Grisel Willams MD [Staff Physician] - - Patient Discharge Instructions Patient Printed Discharge Instructions: DI for Colitis Additional Instructions: Today you were evaluated for abdominal pain and diarrhea. Your blood works are normal, but your CT scan shows that you have an infection or irritation in your intestines called colitis, and you need to take antibiotics called ciprofloxain and Flagyl to fight off the infection. You need to see your primary doctor in the next week for further care. You need to see an intestine doctor called a rug underlay machine operator for further care. If you experience any worsening pain, have a fever, become unable to eat, or have any other new or concerning symptoms, please return to the emergency room. Print Language: GUINEAN - Post Discharge Activity
--- NOTE | 2020-02-11 20:37 | PDOC ---
Documentation entered by Mei Gagnon SCRIBE, acting as scribe for Meghan Tobin MD. Meghan Tobin MD: This documentation has been prepared by the Kelly vaca Sydney, SCRIBE, under my direction and personally reviewed by me in its entirety. I confirm that the documentation accurately reflects all work, treatment, procedures, and medical decision making performed by me. Attending Attestation - Resident Resident Name: Mitch Alfaro - ED Attending Attestation I have performed the following: I have examined & evaluated the patient, The case was reviewed & discussed with the resident, I agree w/resident's findings & plan, Exceptions are as noted - HPI HPI: 02/11/20 20:32 49 yo female with PMH of lupus on plaquenil p/w complaint of diarrhea and LLQ pain - Physicial Exam PE: 02/11/20 20:35 wnwd 49 yo female with diarrhea and LLQ pain head ncat neck supple lung cta b/l cvs [id number] abdomen LLQ tenderness extremities no pitting edema skin warm and dry neuro axox3 psych appropriate - Medical Decision Making 02/11/20 23:51 ct scan abd/pelvis: pancolitis, no abscess pt placed on antitiobitcs with GI follwup IMP pancolitis pt informed to return if she develops a fever, or any worsening pain Discharge - Discharge Information Problems reviewed: Yes Clinical Impression/Diagnosis: Abdominal pain, Colitis Condition: Stable - Follow up/Referral Referrals: Lottie David NP [Primary Care Provider] - - Patient Discharge Instructions - Post Discharge Activity
[2020-02-11 20:57] LABS: BASO % 0.5 % (0-2.0); EOS % 0.6 % (0-4.5); HEMATOCRIT 36.3 % (32.4-45.2); HEMOGLOBIN 12.2 GM/dL (10.7-15.3); LYMPH % 24.5 % (8-40); MCH 29.5 pg (25.7-33.7); MCHC 33.6 g/dl (32.0-36.0); MEAN CELL VOLUME 87.8 fl (80-96); MEAN PLT VOLUME 10.1 fl (7.5-11.1); MONO % 6.8 % (3.8-10.2); NEUT % 67.6 % (42.8-82.8); PLATELET COUNT 168 K/MM3 (134-434); RBC 4.14 M/mm3 (3.60-5.2); RDW 13.3 % (11.6-15.6); WHITE BLOOD COUNT 7.1 K/mm3 (4.0-10.0)
[2020-02-11 21:06] LABS: PH,URINE 5.5 (5.0-8.0); URINE APPEARANCE CLEAR; URINE BILIRUBIN NEGATIVE (NEGATIVE); URINE COLOR YELLOW; URINE GLUCOSE (UA) NEGATIVE (NEGATIVE); URINE KETONE NEGATIVE (NEGATIVE); URINE LEUK ESTERASE NEGATIVE (NEGATIVE); URINE NITRITE NEGATIVE (NEGATIVE); URINE PROTEIN NEGATIVE (NEGATIVE); URINE UROBILINOGEN 0.2 mg/dL (0.2-1.0)
[2020-02-11 21:11] LABS: HCG,QUALITATIVE URINE Negative
[2020-02-11 21:25] LABS: ALBUMIN 3.7 g/dl (3.4-5.0); BILIRUBIN,TOTAL 0.5 mg/dL (0.2-1); CALCIUM 8.4 mg/dL (8.5-10.1); CREATININE 0.7 mg/dL (0.55-1.3); MAGNESIUM 2.3 mg/dL (1.8-2.4); POTASSIUM 3.9 mmol/L (3.5-5.1); TOT PROT 8.7 g/dl (6.4-8.2)
[2020-02-11 23:38] VITALS: BP 91/62; PULSE 74; TEMP 98.5
[2020-02-12] MEDS ORDERED: CIPROFLOXACIN 500 MG TABLET (RESTRICTED TO ID) PO ONE (00:17)
--- NOTE | 2020-02-12 09:15 | EKG ---
Test Reason : Blood Pressure : / mmHG Vent. Rate : 071 BPM Atrial Rate : 071 BPM P-R Int : 206 ms QRS Dur : 088 ms QT Int : 388 ms P-R-T Axes : 049 068 030 degrees QTc Int : 421 ms NORMAL SINUS RHYTHM WITH 1ST DEGREE A-V BLOCK LEFT ATRIAL ENLARGEMENT NONSPECIFIC ST ABNORMALITY ABNORMAL ECG Confirmed by MD MARITZA, DEREK ([id number]) on 02/12/2020 9:15:12 AM Referred By: Confirmed By:DEREK SALAS MD
== END 2020-02-12 01:19 | disposition home or self-care (01) ==
LOC: JER 19:45
DX: R10.84 Generalized abdominal pain (principal)
CPT/HCPCS: 36415; 74177-TC; 80053; 81003; 83690; 83735; 84703; 85025; 87086; 87186; 93005; 93010; 99285-25; Q9967

== ENCOUNTER 2021-01-23 19:44 | Emergency (ER) | payer OTHER ==
[2021-01-23 19:53] VITALS: BP 115/76; BMI 27.3
[2021-01-23] MEDS ORDERED: ACETAMINOPHEN 500 MG TABLET (FP) PO ONE (20:17)
[2021-01-23] MEDS ORDERED: LACTATED RINGERS SOLUTION 1000 ML INFUS.BAG IV ONE (20:28)
[2021-01-23] MEDS ORDERED: ACETAMINOPHEN 1000 MG/100 ML VIAL (NON FORMULARY) IVPB ONE (20:28)
[2021-01-23] MEDS ORDERED: ACETAMINOPHEN INJECTION 100 ML IVPB ONE (20:46)
[2021-01-23] MEDS ORDERED: DEXAMETHASONE LIQUID 0.5 MG/5 ML PO ONE (21:04)
[2021-01-23 21:15] LABS: BASO % 0.2 % (0-2.0); EOS % 1.1 % (0-4.5); HEMOGLOBIN 12.6 GM/dL (10.7-15.3); LYMPH % 15.4 % (8-40); MCH 28.8 pg (25.7-33.7); MEAN CELL VOLUME 84.8 fl (80-96); MEAN PLT VOLUME 9.6 fl (7.5-11.1); MONO % 7.9 % (3.8-10.2); NEUT % 75.4 % (42.8-82.8); PLATELET COUNT 174 10^3/uL (134-434); RBC 4.36 M/mm3 (3.60-5.2); RDW 13.7 % (11.6-15.6); WHITE BLOOD COUNT 6.4 K/mm3 (4.0-10.0)
[2021-01-23] MEDS ORDERED: LIDOCAINE HCL 2% JELLY (30 ML/TUBE) TP ONE (21:25)
[2021-01-23] MEDS ORDERED: LIDOCAINE HCL 1%, 10 MG/ML (50 mL VIAL) SQ ONE (21:25)
[2021-01-23] MEDS ORDERED: DEXAMETHASONE SOD PHOSPHATE 10 MG/1 ML VIAL ONE (21:26)
[2021-01-23] MEDS ORDERED: LIDOCAINE VISCOUS 2% ORAL/TOP 15 ML UNIT-DOSE CUP ONE (21:27)
[2021-01-23] MEDS ORDERED: LIDOCAINE HCL/PF 1% SDV 5ML VIAL ONE (21:27)
[2021-01-23 21:36] LABS: CALCIUM 8.4 mg/dL (8.5-10.1)
[2021-01-23 21:37] LABS: ALBUMIN 3.6 g/dl (3.4-5.0); BLOOD UREA NITROGEN 20.5 mg/dL (7-18)
[2021-01-23 21:40] LABS: CREATININE 0.8 mg/dL (0.55-1.3)
[2021-01-23 21:41] LABS: BILIRUBIN,TOTAL 0.6 mg/dL (0.2-1)
[2021-01-23 21:42] LABS: TOT PROT 9.3 g/dl (6.4-8.2)
[2021-01-23] MEDS ORDERED: CLINDAMYCIN 600MG PREMIX IVPB 600 MG/50 ML BAG IVPB ONE ×2 (22:28→22:38)
[2021-01-23 22:48] VITALS: TEMP 98.3
[2021-01-23 22:51] VITALS: PULSE 87
== END 2021-01-24 00:13 | disposition home or self-care (01) ==
LOC: JER 19:44
PROC: 0C9PXZZ Drainage of Tonsils, External Approach (ICD-10-PCS; principal; 2021-01-23)
PROC: 3E0333Z Introduction of Anti-inflammatory into Peripheral Vein, Percutaneous Approach (ICD-10-PCS; 2021-01-23)
PROC: 3E03329 Introduction of Other Anti-infective into Peripheral Vein, Percutaneous Approach (ICD-10-PCS; 2021-01-23)
DX: J03.90 Acute tonsillitis, unspecified (principal); J36 Peritonsillar abscess; J02.8 Acute pharyngitis due to other specified organisms
CPT/HCPCS: 36415; 76536; 80053; 85025; 87880; 99284-25; C9803; J0131; U0003; U0005

== ENCOUNTER 2021-10-15 18:44 | Emergency (ER) | payer OTHER ==
[2021-10-15 18:52] VITALS: BP 107/72; PULSE 68; TEMP 98.1; BMI 28.7
== END 2021-10-15 21:00 | disposition home or self-care (01) ==
LOC: JER 18:44 → JERFT 18:44
DX: H10.33 Unspecified acute conjunctivitis, bilateral (principal)
CPT/HCPCS: 99283-25

== ENCOUNTER 2021-11-03 15:07 | Emergency (ER) | payer OTHER ==
[2021-11-03 15:47] VITALS: TEMP 98.3; BMI 28.5
[2021-11-03 17:47] LABS: BASO % 0.2 % (0-2.0); EOS % 3.3 % (0-4.5); HEMATOCRIT 36.1 % (32.4-45.2); HEMOGLOBIN 12.1 GM/dL (10.7-15.3); LYMPH % 33.2 % (8-40); MCH 28.3 pg (25.7-33.7); MCHC 33.5 g/dl (32.0-36.0); MEAN CELL VOLUME 84.5 fl (80-96); MEAN PLT VOLUME 9.5 fl (7.5-11.1); MONO % 8.8 % (3.8-10.2); NEUT % 54.5 % (42.8-82.8); PLATELET COUNT 150 10^3/uL (134-434); RBC 4.27 M/mm3 (3.60-5.2); RDW 13.9 % (11.6-15.6); WHITE BLOOD COUNT 3.4 K/mm3 (4.0-10.0)
[2021-11-03 17:57] LABS: INR 1.03 (0.83-1.09); PROTHROMBIN TIME (PATIENT) 11.8 SEC (9.7-13.0)
[2021-11-03 18:10] LABS: CALCIUM 8.9 mg/dL (8.5-10.1)
[2021-11-03 18:11] LABS: ALBUMIN 3.7 g/dl (3.4-5.0); BLOOD UREA NITROGEN 13.2 mg/dL (7-18)
[2021-11-03 18:14] LABS: CREATININE 0.6 mg/dL (0.55-1.3)
[2021-11-03 18:16] LABS: BILIRUBIN,TOTAL 0.5 mg/dL (0.2-1); TOT PROT 8.6 g/dl (6.4-8.2)
[2021-11-03] MEDS ORDERED: ATORVASTATIN CA 40 MG TABLET (FP) PO ONE (18:33)
[2021-11-03] MEDS ORDERED: ASPIRIN 81 MG CHEWABLE TABLETS PO ONE (18:33)
[2021-11-03] MEDS ORDERED: ASPIRIN 81 MG CHEWABLE TABLETS ONE (20:43)
[2021-11-03] MEDS ORDERED: ATORVASTATIN CA 40 MG TABLET (FP) ONE (20:43)
[2021-11-03 21:18] VITALS: BP 110/79; PULSE 65
== END 2021-11-03 21:19 | disposition home or self-care (01) ==
LOC: JER 15:07
DX: R20.2 Paresthesia of skin (principal)
CPT/HCPCS: 36415; 70450-TC; 70551-TC; 80053; 84439; 84443; 85025; 85610; 93880-TC; 99285-25

== ENCOUNTER 2021-11-30 16:06 | Emergency (ER) | payer OTHER ==
[2021-11-30 16:30] VITALS: BP 114/74; PULSE 67; TEMP 98.2; BMI 29.6
[2021-11-30] MEDS ORDERED: KETOROLAC TROMETHAMINE 30 MG/1 ML VIAL IM ONE (19:35)
[2021-11-30] MEDS ORDERED: KETOROLAC TROMETHAMINE 30 MG/1 ML VIAL ONE (19:40)
== END 2021-11-30 20:19 | disposition home or self-care (01) ==
LOC: JERFT 16:06
PROC: 3E0233Z Introduction of Anti-inflammatory into Muscle, Percutaneous Approach (ICD-10-PCS; principal; 2021-11-30)
DX: M25.50 Pain in unspecified joint (principal)
CPT/HCPCS: 99284-25

== ENCOUNTER 2022-01-22 20:26 | Emergency (ER) | payer OTHER ==
[2022-01-22 20:36] VITALS: BP 105/70; PULSE 69; RESP 19; TEMP 98; BMI 28.9
[2022-01-22] MEDS ORDERED: LIDOCAINE 5% TOPICAL PATCH TP ONE (21:41)
[2022-01-22] MEDS ORDERED: KETOROLAC TROMETHAMINE 15 MG/ML VIAL IM ONE (21:41)
[2022-01-22] MEDS ORDERED: diazePAM 2 MG TABLET PO ONE (21:41)
[2022-01-22] MEDS ORDERED: diazePAM 2 MG TABLET ONE (21:48)
[2022-01-22] MEDS ORDERED: LIDOCAINE 5% TOPICAL PATCH ONE (21:48)
[2022-01-22] MEDS ORDERED: KETOROLAC TROMETHAMINE 15 MG/ML VIAL ONE (21:48)
[2022-01-22] MEDS ORDERED: LIDOCAINE PATCH REMOVAL MC SCH (22:00)
== END 2022-01-22 22:00 | disposition home or self-care (01) ==
LOC: JERFT 20:26
PROC: 3E0233Z Introduction of Anti-inflammatory into Muscle, Percutaneous Approach (ICD-10-PCS; principal; 2022-01-22)
DX: M54.50 Low back pain, unspecified (principal)
CPT/HCPCS: 96372; 99283-25

== ENCOUNTER 2022-10-13 11:17 | Emergency (ER) | payer OTHER ==
[2022-10-13 11:26] VITALS: BP 118/78; PULSE 102; RESP 20; TEMP 99.8; BMI 29.6
[2022-10-13] MEDS ORDERED: IBUPROFEN 600 MG TABLET (FP) PO ONE ×2 (11:54→12:16)
[2022-10-13 12:28] LABS: THROAT:GRP A STREP NOT DETECTED (NOTDETECTED)
== END 2022-10-13 13:35 | disposition home or self-care (01) ==
LOC: JERFT 11:17
DX: J18.9 Pneumonia, unspecified organism (principal); J06.9 Acute upper respiratory infection, unspecified; J02.9 Acute pharyngitis, unspecified; Z20.822 Contact with and (suspected) exposure to COVID-19
CPT/HCPCS: 0241U-QW; 71046-TC-FY; 87651; 99284-25

== ENCOUNTER 2023-03-16 21:50 | Emergency (ER) | payer OTHER ==
[2023-03-16 21:56] VITALS: BP 119/72; PULSE 69; RESP 18; TEMP 97.8; BMI 29.2
[2023-03-16] MEDS ORDERED: SODIUM CHLORIDE 0.9% 500 ML INFUS.BAG IV ONE (23:50)
[2023-03-16] MEDS ORDERED: ACETAMINOPHEN 1000 MG/100 ML BAG IVPB ONE (23:50)
[2023-03-17] MEDS ORDERED: ACETAMINOPHEN INJECTION 100 ML IVPB ONE (00:22)
[2023-03-17 00:56] LABS: BASO % 0.6 % (0-2.0); EOS % 3.6 % (0-4.5); HEMATOCRIT 38.1 % (32.4-45.2); MCH 28.2 pg (25.7-33.7); MEAN PLT VOLUME 8.9 fl (7.5-11.1); MONO % 6.9 % (3.8-10.2); NEUT % 50.9 % (42.8-82.8); PLATELET COUNT 199 10^3/uL (134-434); RBC 4.59 M/mm3 (3.60-5.2); WHITE BLOOD COUNT 3.6 K/mm3 (4.0-10.0)
[2023-03-17 01:17] LABS: POTASSIUM 3.3 mmol/L (3.5-5.1)
[2023-03-17 01:19] LABS: CALCIUM 8.6 mg/dL (8.5-10.1)
[2023-03-17 01:20] LABS: BLOOD UREA NITROGEN 21.6 mg/dL (7-18)
[2023-03-17 01:22] LABS: CREATININE 0.7 mg/dL (0.55-1.3)
[2023-03-17 01:24] LABS: BILIRUBIN,TOTAL 0.5 mg/dL (0.2-1); TOT PROT 9.4 g/dl (6.4-8.2)
[2023-03-17] MEDS ORDERED: POTASSIUM CHLORIDE ORAL LIQUID 20 MEQ/15 ML PO ONE (02:05)
[2023-03-17 02:26] LABS: MAGNESIUM 2.1 mg/dL (1.8-2.4)
[2023-03-17 02:30] LABS: PHOSPHOROUS 4.1 mg/dL (2.5-4.9)
== END 2023-03-17 03:45 | disposition home or self-care (01) ==
LOC: JER 21:50
PROC: 3E033NZ Introduction of Analgesics, Hypnotics, Sedatives into Peripheral Vein, Percutaneous Approach (ICD-10-PCS; principal; 2023-03-17)
DX: R19.7 Diarrhea, unspecified (principal); R10.13 Epigastric pain
CPT/HCPCS: 36415; 71046-TC-FY; 80053; 83690; 83735; 84100; 84484; 85025; 93005; 93010; 99285-25